=== PATIENT | male | born 1950 | race Caucasian/White ===

== ENCOUNTER 2017-11-30 18:43 | Emergency (ER) | payer OTHER ==
[~2017-11-30] VITALS: Ht 177.8 cm; Wt 84.5 kg
[~2017-11-30 18:43] MED LIST: ACT15 PO; ASPEC81 PO; CLOP1TAB15 PO; CRS10 PO; GLC5 PO; GLC500 PO; LEVO25TA PO; LPR25 PO; LSN25 PO; MULT-506 PO; NTRSLP4 SL
[2017-11-30 18:45] VITALS: TEMP 36.6; Ht 177.8 cm; Wt 84.5 kg
[2017-11-30] MEDS ORDERED: GELATIN SPONGE 12-7MM ONE (18:51)
[2017-11-30 19:29] VITALS: BP 136/67; PULSE 67; O2SAT 97
--- NOTE | 2017-12-01 00:14 | EMERGENCY ROOM VISIT NOTE ---
ED Visit Note First contact with patient: 18:48 Chief Complaint: I cut my right thumb and middle finger. History of Present Illness: Mr. Araya is a 67-year-old white male who ambulates into the ED complaining of soft tissue injuries to the right thumb and middle finger. Patient reports approximately 1 hour ago he was using a mandolin to slice potatoes and accidentally cut his right thumb and middle finger. He reports he attempted to control bleeding prior to arrival at the hospital but was unsuccessful. Currently he is complaining of a stinging pain over his soft tissue avulsion over the right thumb. He rates his discomfort 2/10. His pain is nonradiating. His pain worsens with palpation. He has not identified any alleviating factors related to the pain. He has not taken any medications for pain prior to arrival at the hospital. He has no complaints or symptoms with his other skin avulsion over the tip of the middle finger. He denies any associated hand/finger weakness/numbness/tingling. Review of Systems: As noted above in history of present illness. Past Medical History: Hypertension, coronary artery disease, dyslipidemia, cervical disc disease, type 2 diabetes, status post catheterization with stenting of the RCA and cervical discectomy. Current Medications: Medications Dose Route/Sig Max Daily Dose Days Date Category [[id number]] 0.4 Mg SL UD PRN 07/28/11 Rx Plavix (Clopidogrel Bisulfate) 75 Mg Tab 75 Mg PO QAM 30 07/28/11 Rx Lopressor (Metoprolol Tartrate) 25 Mg Tab 12.5 Mg PO BID 30 07/28/11 Rx Zestril * (Lisinopril) 2.5 Mg Tab 2.5 Mg PO QAM 30 07/28/11 Rx Synthroid (Levothyroxine Sodium) 25 Mcg Tab 25 Mcg PO DAILY 07/26/11 Reported Ecotrin Or Generic * (Aspirin) 81 Mg Ectab 81 Mg PO DAILY 05/28/08 Reported Multivitamin (Multivitamins) Tab 1 Tab PO DAILY 05/28/08 Reported Crestor * (Rosuvastatin Calcium) 10 Mg Tab 40 Mg PO DAILY 05/28/08 Reported Glucophage * (Metformin HCl) 500 Mg Tab 500 Mg PO BID 05/28/08 Reported Glucotrol * (Glipizide) 10 Mg Tab 10 Mg PO BID 05/28/08 Reported Actos * (Pioglitazone HCl) 45 Mg Tab 45 Mg PO DAILY 05/28/08 Reported Allergies to Medications: Patient denies. Social History: Patient is not currently employed; he feels safe in his home environment; he denies tobacco use. Tetanus Immunization Status: Patient reports up-to-date. Physical Examination: Vital Signs: Date Time Temp Pulse Resp B/P (MAP) Pulse Ox O2 Delivery O2 Flow Rate FiO2 11/30/17 19:29 67 18 136/67 97 11/30/17 18:45 36.6 76 18 138/59 98 Room Air GENERAL: 67-year-old male in no acute distress, nontoxic-appearing, afebrile and hemodynamically stable. NEUROLOGICAL: Awake, alert and oriented to person, place and time. Answering questions appropriately and following commands. Normal gait. Good hand eye coordination. No focal motor or sensory deficits. SKIN: Warm, dry and pink. Right Thumb: Patient has an oval-shaped skin avulsion measuring approximately 2.8 cm x 1 cm over the finger pad with active bleeding. Additionally over the top of the right middle finger patient has a football sized skin avulsion measuring less than 1 cm. This skin avulsion involves a small piece of the nail and nailbed. There is no active bleeding in this area. RIGHT HAND: Soft tissue injuries as noted above. No gross bony deformity. Throughout the hand the skin was warm and pink and capillary refill was brisk. He was able to distinguish light sensations through all dermatomes of the fingers. ED Course: Patient is assessed as noted above. Patient's medication list was reviewed. Patient was offered pain medication and refused Patient's wounds were prepped with Betadine and irrigated with sterile saline. Patient's thumb laceration was covered with a piece of Surgifoam and then a sterile bandage. His middle finger skin avulsion was covered with a Band-Aid. Patient was observed for an additional 10-15 minutes and there was no excessive bleeding from his thumb avulsion. Patient was educated about tonight's findings and instructed on his treatment plan; he verbalizes understanding and agreement with this plan. Clinical Impression: Skin avulsions to the right thumb and middle finger. Disposition: Patient discharged home in stable condition; prior to departure he was reassessed and subjectively reported he was pain-free Plan: Comfort measures, wound care, and signs of infection were discussed with the patient. Patient was encouraged to follow-up with ECP or return to the ED for any signs of infection or any new/concerning symptoms.
== END 2017-11-30 19:25 | disposition home or self-care (01) ==
LOC: C.EDB 18:45 → C.EDD 19:25
DX: S61.001A Unspecified open wound of right thumb without damage to nail, initial encounter (principal); S61.302A Unspecified open wound of right middle finger with damage to nail, initial encounter; W45.8XXA Other foreign body or object entering through skin, initial encounter; Y93.G1 Activity, food preparation and clean up; E78.5 Hyperlipidemia, unspecified; I10 Essential (primary) hypertension; E11.9 Type 2 diabetes mellitus without complications; Z79.84 Long term (current) use of oral hypoglycemic drugs; Z79.02 Long term (current) use of antithrombotics/antiplatelets; Z79.82 Long term (current) use of aspirin; Z95.818 Presence of other cardiac implants and grafts